=== PATIENT | female | born 1965 | race Caucasian/White ===

== ENCOUNTER 2017-10-17 14:11 | Inpatient (IN) | payer BC ==
[2017-10-17] MEDS ORDERED: Vancomycin(*) 750 MG in NS 0.9% 250 ML* 250 ML IVPB ONE (15:30)
[2017-10-17 15:46] LABS: Hematocrit 39 % (35-47); Hemoglobin 12.9 g/dl (12.0-16.0); Mean Corpuscular HGB Conc 34 g/dl (31-36); Mean Corpuscular Hemoglobin 31 pg (27-31); Mean Corpuscular Volume 91 fL (80-97); Mean Platelet Volume 8 um3 (7.4-10.4); Red Blood Count 4.23 10^6/ul (4.0-5.4); Red Cell Distribution Width 13 % (10.5-15)
[2017-10-17 15:49] LABS: Add Diff/Slide Review? Slide Review Added; Comments Flag Yes
[2017-10-17] MEDS ORDERED: Clindamycin 600 MG IVPREMIX(* 600 MG/50 ML SDV IV ONE (15:55)
[2017-10-17] MEDS ORDERED: Morphine INJ* 2 MG/ML 1 ML CARPUJECT IV ONE ×2 (15:56→17:07)
[2017-10-17] MEDS ORDERED: Morphine INJ* 2 MG/ML 1 ML SYRINGE (TWO MG - NEW SYRINGE VERSION) ONE (15:59)
[2017-10-17] MEDS ORDERED: Vancomycin(*) 1,000 MG VIAL IVPB SCH (16:00)
[2017-10-17 16:01] LABS: Albumin 4.4 g/dL (3.2-5.2); BUN/Creatinine Ratio 13.5 (8-20); C Reactive Protein 28.66 mg/L (< 5.00); Calcium 9.3 mg/dL (8.6-10.3); EGFR African American 66.6 (>60); EGFR Non-African American 51.8 (>60); Globulin 2.7 g/dL (2-4); Potassium 3.6 mmol/L (3.5-5.0); Total Protein 7.1 g/dL (6.4-8.9)
[2017-10-17] MEDS ORDERED: Tetan/Diph/Pertus SYR(Tdap)* 0.5 ML SYR(BOOSTRIX) use SYR IM ONE (16:07)
[2017-10-17] MEDS ORDERED: NS 0.9% 1000 ML*IV.FLUID IV ONE (16:08)
[2017-10-17] MEDS ORDERED: Ondansetron INJ* 2 MG/ML VIAL IV ONE (16:08)
[2017-10-17] MEDS ORDERED: Acetaminophen TAB* 325 MG PO PRN (16:27)
--- NOTE | 2017-10-17 16:36 | RAD ---
HISTORY: Fall, septic knee COMPARISONS: None VIEWS: 1: frontal portable view of the chest at 4 6:00 PM FINDINGS: LINES AND TUBES: None. CARDIOMEDIASTINAL SILHOUETTE: The cardiomediastinal silhouette is normal for portable technique. PLEURA: The costophrenic angles are sharp. No pleural abnormalities are noted. LUNG PARENCHYMA: The lungs are clear. ABDOMEN: The upper abdomen is clear. There is no subphrenic gas. BONES AND SOFT TISSUES: The patient is status post internal fixation of the left clavicle. There is remote posttraumatic deformity to the left hemithorax. IMPRESSION: NO ACTIVE CARDIOPULMONARY DISEASE.
--- NOTE | 2017-10-17 16:38 | RAD ---
HISTORY: Right knee pain, infected knee, COMPARISONS: None TECHNIQUE: Multiple contiguous axial CT images are obtained of the right knee, with coronal and sagittal multiplanar reconstructions, without intravenous contrast administration. FINDINGS: BONE DENSITY: Normal. BONES: There is no displaced fracture. There is no appreciable erosion or periosteal reaction. JOINTS: There is no arthropathy. There is no suprapatellar joint effusion or lipohemarthrosis. MUSCULATURE: Unremarkable ALIGNMENT: There is no dislocation. SOFT TISSUES: There is stranding of the subcutaneous fat along the right infrapatellar and pretibial soft tissue, superficial to the patellar ligament. There is minimal subcutaneous emphysema. There is no loculated fluid collection. OTHER FINDINGS: None. IMPRESSION: INFLAMMATORY CHANGE OF THE INFRAPATELLAR AND PRETIBIAL subcutaneous SOFT TISSUE, WITH MINIMAL SUBCUTANEOUS EMPHYSEMA. THERE IS NO LOCULATED FLUID COLLECTION.
[2017-10-17] MEDS ORDERED: Lidocaine 1% INJ* 10 MG/ML 30 ML SDV ONE (16:59)
[2017-10-17] MEDS ORDERED: Morphine INJ* 4 MG/ML 1 ML CARPUJECT ONE (17:03)
[2017-10-17] MEDS ORDERED: Lidocaine 1%* 5 ML VIAL INJ ONE (17:08)
[2017-10-17 17:17] LABS: Erythrocyte Sed Rate 15 mm/Hr (0-30)
[2017-10-17] MEDS ORDERED: Morphine INJ* 2 MG/ML 1 ML SYRINGE (TWO MG - NEW SYRINGE VERSION) IV PRN (17:45)
[2017-10-17] MEDS ORDERED: oxyCODONE/Acetamin 5/325 MG* TAB PO PRN (17:46)
[2017-10-17] MEDS ORDERED: Estradiol PATCH 0.05MG/DAY* 1 PATCH TRANSDERM SCH (18:00)
[2017-10-17] MEDS: oxyCODONE/Acetamin 5/325 MG* TAB PO PRN (18:17)
[2017-10-17] MEDS: NS 0.9% 1000 ML* 1,000 ML IV SCH (18:25)
[2017-10-17] MEDS: Ibuprofen TAB* 600 MG PO SCH ×2 (19:37→23:03)
[2017-10-17] MEDS: Progesterone CAP (NF) 100 MG CAP PO SCH (20:55)
[2017-10-17] MEDS ORDERED: Progesterone MICRONIZED(NF) 200 MG CAP PO SCH (21:00)
--- NOTE | 2017-10-17 21:10 | ED ---
Robbi Todd Tiffany, scribed for Ami Diehl MD on 10/17/17 at 1556 . Lower Extremity - HPI Summary HPI Summary: This patient is a 51 year old F referred to [facility] from orthopedic office accompanied by with chief complaint of R knee pain s/p hitting her R knee yesterday. The patient was running through the [place] in the [place] morning at 07:00. She slipped and fell on her R knee, hitting her R knee on some rocks. Patient reports that she may have twisted her R knee. Patient received sutures on her R knee at 09:00 yesterday morning. Patient was sent from orthopedics to ED for wound to be re-opened and irrigated and for CT evaluation to eval for air in the joint. The patient rates the pain 7/10 in severity. Symptoms aggravated by nothing. Symptoms alleviated by nothing. She reports increased pain since yesterday, redness, swelling with red streaking. Patient reports nausea. Patient denies chest pain, shortness of breath, and vomiting. She currently has knee in maddy wrap. She had a fever of 104 last night. Patient evaluated with Dr. Zhang in the room. 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 Ponce Mechanism Of Injury: Other - Running through [place] and slipping on snow and falling on R knee Onset of Pain: Post Accident Onset/Duration: Days - 1 Severity Initially: Moderate Severity Currently: Moderate Pain Intensity: 7 Pain Scale Used: 0-10 Numeric Timing: Constant Location: Is Discrete @ - R knee Character Of Pain: Sharp Associated Signs And Symptoms: Positive: Swelling, Redness, Fever, Other - increased pain since yesterday, redness, swelling with red streaking on R knee, fever, and nausea; NEGATIVE: chest pain, shortness of breath, and vomiting Aggravating Factor(s): Nothing Alleviating Factor(s): Nothing Able to Bear Weight: Yes - Allergies/Home Medications Allergies/Adverse Reactions: Allergies Allergy/AdvReac Type Severity Reaction Status Date / Time CATS Allergy ASTHMA Uncoded 04/14/15 10:45 ENVIRONMENTAL/SEASONAL Allergy ITCHY Uncoded 04/14/15 10:45 WATERY EYE Home Medications: Home Medications Estradiol [Climara] 0.05 mg TOPICAL Q3D 10/17/17 [History Confirmed 10/17/17] Ibuprofen TAB* [Motrin TAB* 600 MG] 600 mg PO Q6H PRN 10/17/17 [History Confirmed 10/17/17] Loratadine [Claritin 10 MG CAP] 10 mg PO DAILY PRN 10/17/17 [History Confirmed 10/17/17] Multiple Vitamins W/ Minerals [Multivitamin Adults] 1 tab PO DAILY 10/17/17 [ History Confirmed 10/17/17] Progesterone Micronized [Progesterone] 100 mg PO BEDTIME 10/17/17 [History Confirmed 10/17/17] PMH/Surg Hx/FS Hx/Imm Hx Previously Healthy: No Cardiovascular History: Denies: Hx Pacemaker/ICD Respiratory History: Reports: Hx Asthma - ALLERGY TO CATS Musculoskeletal History: Denies: Hx Rheumatoid Arthritis, Hx Osteoporosis, Other Musculoskeletal History - ULNAR COLLATERAL LIGAMENT TEAR RIGHT THUMB Sensory History: Reports: Hx Contacts or Glasses - CONTACT, WILL WEAR GLASSES DAY OF SURGERY Denies: Hx Hearing Aid Opthamlomology History: Reports: Hx Contacts or Glasses - CONTACT, WILL WEAR GLASSES DAY OF SURGERY Neurological History: Reports: Hx Headaches - OCCASIONAL Psychiatric History: Denies: Hx Panic Disorder - Surgical History Surgery Procedure, Year, and Place: NASAL FX REPAIR. 3 - C SECTION, [facility]. SESAMOID BONE REMOVED LEFT FOOT, [place] 1990. Lt THUMB -UCL REPAIR AGE 20. 1991 Lt ELBOW - RECON SURG, [place]. 2013 RIGHT ULC REPAIR, [facility] Hx Anesthesia Reactions: Yes - 2013 CONFUSED FOR A WEEK AFTER Infectious Disease History: No Infectious Disease History: Denies: Traveled Outside the [place] in Last 30 Days - Family History Known Family History: Positive: Cardiac Disease - Social History Occupation: Employed Full-time Alcohol Use: Weekly Alcohol Amount: 3-5 DRINKS PER WEEK Hx Substance Use: No Substance Use Type: Reports: None Hx Tobacco Use: No Smoking Status (MU): Never Smoked Tobacco Review of Systems Positive: Fever - Last night, 104 Negative: Chest Pain Negative: Shortness Of Breath Positive: Nausea - increased R knee pain since yesterday. Negative: Vomiting Positive: Other - R knee Positive: Other - Redness and swelling with red streaking on R knee Neurological: Negative Psychological: Normal All Other Systems Reviewed And Are Negative: Yes Physical Exam Triage Information Reviewed: Yes Vital Signs On Initial Exam: Initial Vitals Temp Pulse Resp BP Pulse Ox 99.4 F 60 17 94/54 99 10/17/17 14:15 10/17/17 14:15 10/17/17 14:15 10/17/17 14:15 10/17/17 14:15 Vital Signs Reviewed: Yes Appearance: Positive: Well-Appearing, Well-Nourished, Pain Distress Skin: Positive: Warm, Skin Color Reflects Adequate Perfusion, Tender, Erythema @ - right knee, Lymphangitis - right knee to right thigh, Other - R knee had 5 sutures that were intact and dry, there was surrounding redness that was 5cm with two lymphangitic streaks coming up the anterior thigh; NEGATIVE: calf tenderness Head/Face: Positive: Normal Head/Face Inspection Eyes: Positive: Conjunctiva Clear ENT: Positive: Normal ENT inspection Neck: Positive: Supple Respiratory/Lung Sounds: Positive: Clear to Auscultation, Breath Sounds Present - Normal, Other - No respiratory distress Cardiovascular: Positive: Normal, RRR, Pulses are Symmetrical in both Upper and Lower Extremities. Negative: Murmur, Leg Edema Left, Leg Edema Right Abdomen Description: Positive: Nontender, Soft Musculoskeletal: Positive: Strength/ROM Intact, Other - good flexion and extension of R knee Neurological: Positive: Sensory/Motor Intact, Alert, Oriented to Person Place, Time, Facial Symmetry, Speech Normal Psychiatric: Positive: Normal Diagnostics - Vital Signs Vital Signs Temp Pulse Resp BP Pulse Ox 10/17/17 15:41 98 10/17/17 14:15 99.4 F 60 17 94/54 99 - Laboratory Lab Results: Lab Results 10/17/17 Range/Units 15:35 WBC 13.0 H (3.5-10.8) 10^3/ul RBC 4.23 (4.0-5.4) 10^6/ul Hgb 12.9 (12.0-16.0) g/dl Hct 39 (35-47) % MCV 91 (80-97) fL MCH 31 (27-31) pg MCHC 34 (31-36) g/dl RDW 13 (10.5-15) % Plt Count 198 (150-450) 10^3/ul MPV 8 (7.4-10.4) um3 Neut % (Auto) 92.4 H (38-83) % Lymph % (Auto) 3.2 L (25-47) % [place] % (Auto) 4.2 (1-9) % Eos % (Auto) 0.1 (0-6) % Baso % (Auto) 0.1 (0-2) % Absolute Neuts (auto) 12.0 H (1.5-7.7) 10^3/ul Absolute Lymphs (auto) 0.4 L (1.0-4.8) 10^3/ul Absolute Monos (auto) 0.5 (0-0.8) 10^3/ul Absolute Eos (auto) 0 (0-0.6) 10^3/ul Absolute Basos (auto) 0 (0-0.2) 10^3/ul Absolute Nucleated RBC 0 10^3/ul Nucleated RBC % 0 ESR Pending Result Diagrams: 10/17/17 15:35 10/17/17 15:35 Lab Statement: Any lab studies that have been ordered have been reviewed, and results considered in the medical decision making process. - Radiology CXR Radiology Interpretation Completed By: Radiologist - NO ACTIVE CARDIOPULMONARY DISEASE. ED physician has reviewed this radiology report. - CT Lower Extremity CT Interpretation Completed By: Radiologist - INFLAMMATORY CHANGE OF THE INFRAPATELLAR AND PRETIBIAL subcutaneous SOFT TISSUE, WITH MINIMAL SUBCUTANEOUS EMPHYSEMA. THERE IS NO LOCULATED FLUID COLLECTION. ED physician has reviewed this radiology report. - EKG 15:33 Cardiac Rate: NL EKG Rhythm: Sinus Rhythm - [address] Segment: Non-Specific EKG Interpretation: Normal AV/IV conduction time. Normal QTC. Normal axis. Re-Evaluation - Re-Evaluation First Eval Re-Evaluation Time: 16:00 Change: Unchanged Comment: Patient is informed admisson plan. She has no new complaints. Lower Extremity Course/Dx - Course Course Of Treatment: An EKG reveals normal sinus rhythm, normal AV/IV conduction time, normal QTC and normal axis. CXR reveals, per radiologist, NO ACTIVE CARDIOPULMONARY DISEASE. CT Lower Extremity reveals, per radiologist INFLAMMATORY CHANGE OF THE INFRAPATELLAR AND PRETIBIAL subcutaneous SOFT TISSUE , WITH MINIMAL SUBCUTANEOUS EMPHYSEMA. THERE IS NO LOCULATED FLUID COLLECTION. Test results with no significant abnormalities. In the ED course, the patient was given Tylenol, Clindamycin 600mg IV, Xylocaine by Dr. Ponce to open wound and irrigate, Morphine 2mg IV, Zofran 4mg, and Tdap update. We discussed patient care with Dr. Herrera (orthopedics) who said that will see the patient , take stiches out and irrigate the wound. At 15:57, Dr. Salinas (hospitalist) agreed to accept the patient for admission. At 16:03, radiology said shell be imaged next. Dr. Herrera removed sutures, found pus in wound, and irrigated the wound at the patients bedside at 17:04. Patient will be admitted for IV antibiotics. The patient is agreeable with this plan. Assessment/Plan: Allergies noted. - Diagnoses Differential Diagnosis/HQI/PQRI: Positive: Fracture (Closed), Infection, Septic Arthritis, Other - sepsis Provider Diagnoses: right knee wound infection - Physician Notifications Discussed Care Of Patient With: Deric Herrera Time Discussed With Above Provider: 15:54 Instructed by Provider To: Admit As Observation - Dr. Herrera (orthopedics) said he will see the patient, take stiches out and irrigate the wound. At 15:57 , Dr. Salinas (hospitalist) agreed to accept the patient for admission. Discharge - Discharge Plan Condition: Stable Disposition: ADMITTED TO [facility] The documentation as recorded by the Robbi hadley Tiffany accurately reflects the service I personally performed and the decisions made by , Ami Diehl MD.
[2017-10-17] MEDS: Clindamycin 600 MG IVPREMIX(* 600 MG/50 ML SDV IV SCH (22:04)
--- NOTE | 2017-10-17 22:20 | CONS ---
CONSULTATION REPORT: DATE OF CONSULT: 10/17/17 REQUESTING PHYSICIAN: Dr. Ami Diehl. CONSULTING SERVICE: Infectious Disease. REASON FOR CONSULT: Right knee infection. IMPRESSION: Right knee laceration October 16 after a fall and rapid onset overnight of fever, erythema around the incision and streaking up the leg that has been progressed more during the day. I do not think there is a necrotizing soft tissue infection. Microbiologic differential includes Strep. There is a question about the degree of which the incision was washed out and I am concerned that that process was incomplete. She does have some pain with weightbearing and bending the knee without significant infusion on exam. RECOMMENDATION: Clindamycin 600 mg IV every 8 hours. She is going to have a CT scan as directed by Dr. Herrera to evaluate the joint space. She will need a tetanus shot. I think it will make sense to open up the sutures, which have only been placed for less than 24 hours, make sure it is thoroughly irrigated. HISTORY OF PRESENT ILLNESS: This is a 51-year-old woman otherwise healthy, had a fall while running, landed on knee and found she had a gash over the right knee. She washed it with soap and water and no shower. She is a physician, her as well, they went to their office, he sutured it. It has remained intact, but overnight developed some redness, this morning awoke with a fever to 101 and she had pain with bending the knee and weightbearing and there were red streaks coming up her knee. She saw Dr. Herrera today who directed to the emergency room. She was febrile in his office. Her blood pressure was stable here. She has continued knee pain, some chills and sweats. The redness has not progressed since the morning. She can still bend the knee, but it is painful as well as with weightbearing. She has not had an infection requiring hospitalization in the past. PAST MEDICAL HISTORY: Left clavicle fracture, status post open reduction and internal fixation. MEDICATIONS AT HOME: 1. Oxycodone as needed. 2. Progesterone. 3. Loratadine. ALLERGIES: No known drug allergies. FAMILY HISTORY: No recurrent infections. 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 No travel. REVIEW OF SYSTEMS: A 14-point review of systems was negative except as noted above. PHYSICAL EXAM: Vital Signs: Temperature is 37, heart rate 65, blood pressure 124/83, oxygen saturation is 98% on room air. In general, she is awake, not in distress. Neurologic: She is oriented x3, follows all commands. HEENT: There is no conjunctival hemorrhage. Oropharynx without lesions. Neck is supple. Heart is regular rate and rhythm without murmurs, rubs, or gallops. Lungs are clear to auscultation bilaterally. Abdomen: Soft, nontender, nondistended. There are bowel sounds present. Skin: There is no rash or splinter hemorrhages. Musculoskeletal: Right knee, there is anterior laceration which is sutured. There is surrounding erythema with some streaks up her leg with some mild warmth. There is diffuse edema. There is no large effusion at least. She has decreased flexion. There is no crepitus or fluctuance. DIAGNOSTIC STUDIES/LAB DATA: Lab data is pending. Please see impressions and recommendations outlined above, which I have discussed with Dr. Diehl and Dr. Herrera. Thank you for asking me to see Dr. Figueredo in consultation. [id number]/[facility] #: [id number] [facility]
--- NOTE | 2017-10-17 23:27 | HP ---
CC: Dr. China Watts * HISTORY AND PHYSICAL: DATE OF ADMISSION: 10/17/17 PRIMARY CARE PROVIDER: Dr. China Watts. ATTENDING PHYSICIAN: Dr. Chance Salinas * (dictated by Sheila Person NP). CHIEF COMPLAINT: Right knee pain and swelling after falling and sustaining a laceration. HISTORY OF PRESENT ILLNESS: Ms. Figueredo is a 51-year-old female with past medical history significant for perimenopausal migraines and asthma when exposed to cats, who initially presented to Dr. Herrera with Orthopedic's office to evaluate her knee that was red and painful after she fell while running in the snow on to a rock, sustaining right knee laceration. She washed the injury out with water in the shower and then her who is a physician sutured the injury. She feels that she may have twisted her knee. She reports increased pain, redness, swelling, and some red streaking in her knee, also difficulty bearing weight due to pain. She denies any fevers, although while at Dr. Herrera's office, she was found to have a temperature of 101. She states she had taken Tylenol this a.m. and ibuprofen yesterday. The patient reports dry cough and denies chest pain, shortness of breath. She also reports some nausea. She has had a recent cold and she denies any urinary symptoms. Dr. Herrera referred the patient to the emergency room for further evaluation. While in the emergency room, she had labs significant for a leukocytosis with a WBC of 13. She had an elevated creatinine of 1.11, but that appeared to be near her baseline. She had an EKG showing a sinus rhythm, no acute signs of ischemia. CRP elevated at 28.66. She was seen by Dr. Zhang, who recommended admitting the patient and placing her on clindamycin 600 mg IV every [address] Herrera recommended the patient have a CT of her knee if she had air in the knee. The plan was to take her to the OR and do a wound exploration. He felt that she just needed a washout in the ER and resuturing of the laceration after the CT scan was seen. Hospitalists were asked to evaluate the patient for admission. PAST MEDICAL HISTORY: 1. Perimenopausal migraines. 2. Asthma when exposed to cats. PAST SURGICAL HISTORY: 1. Status post a left clavicle ORIF. 2. Status post 3 sections. 3. Status post nasal fracture repair. 4. Status post a left sesamoid bone removal. 5. Status post arm laceration repair. 6. Status post wisdom teeth extraction. 7. Status post a left thumb UCL repair. 8. Status post left elbow reconstruction. 9. Status post right UCL repair. HOME MEDICATIONS: Include: 1. Progesterone 100 mg oral daily at bedtime. 2. Estradiol 0.5 mcg patch applies twice weekly. 3. Multivitamin 1 tablet oral daily. 4. Motrin 600 mg oral every 6 hours as needed for pain. 5. Acetaminophen 500 mg oral as needed for pain. 6. Claritin 10 mg oral as needed for allergy symptoms. ALLERGIES: CAT, SEASONAL. FAMILY HISTORY: The patient's father has a history of hypertension, hyperlipidemia, bladder cancer. She denies any family history of diabetes mellitus. SOCIAL HISTORY: The patient denies tobacco or recreational drug use. She drinks 3 to 4 drinks weekly. Her , Dr. Babatunde Roldan will be her surrogate decision maker in the event she is unable to make decisions for herself. REVIEW OF SYSTEMS: I performed a 14-point review of systems. All the pertinent positives and negatives are mentioned in the history of present illness. The remaining review of systems are negative. PHYSICAL EXAMINATION GENERAL APPEARANCE: The patient is alert, pleasant, appears to be in no acute distress. VITAL SIGNS: Temperature 99.4, heart rate 60, respiratory rate 17, O2 sat 99% on room air, blood pressure 94/54. HEENT: Head: Normocephalic, atraumatic. RESPIRATORY: There is no accessory muscle use. The lungs are clear to auscultation bilaterally. CARDIOVASCULAR: Regular rate and rhythm. S1, S2 present. There are no murmurs , rubs, or gallops heard. ABDOMEN: Soft, nontender, and nondistended. There are bowel sounds present x4. EXTREMITIES: There is mild swelling at the right knee. No lower extremity edema. DP and PT pulses are 2+ and symmetric. MUSCULOSKELETAL: There is no clubbing or cyanosis noted. The patient exhibits good strength in all extremities. NEUROLOGICAL: The patient is alert and oriented x4. Cranial nerves II through XII are grossly intact. PSYCHOLOGICAL: The patient is calm and cooperative. SKIN: The patient has a dressing to her right knee that is clean, dry, and intact. She has erythema with some streaking noted from her knee on the right leg. DIAGNOSTIC STUDIES/LABORATORY DATA: Sodium 132, potassium 3.6, chloride 101, CO2 25, BUN 15, creatinine 1.11, glucose 123. CRP 28.66. WBCs 13.0, hemoglobin 12.9, hematocrit 39, platelet count 198. EKG shows a sinus rhythm with a rate of 65. There are no acute signs of ischemia and no previous EKGs for comparison. 1. Chest x-ray from today. Radiologist's impression: No active cardiopulmonary disease. 2. Right lower extremity CT from today. Radiologist's impression: Inflammatory change of the infrapatellar and pretibial subcutaneous soft tissue , with minimal subcutaneous emphysema. There is no loculated fluid collection. 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 She will be admitted as an inpatient for cellulitis. ASSESSMENT/PLAN: 1. Cellulitis. The patient was seen in consultation by Dr. Zhang and Dr. Herrera. Dr. Herrera is going to wash the patient's knee out in the emergency room and resuture it. Dr. Zhang has recommended the patient be placed on clindamycin 600 mg oral every 6 hours. We provide her with pain medication. She is not meeting signs of sepsis. She is afebrile here. She does have leukocytosis. She does not have tachycardia or tachypnea. Her blood pressures were in the 90s upon arrival. She received some fluids. I suspect this is close to her baseline blood pressures. We will continue some gentle hydration overnight. The patient's CRP is 28.66 and her ESR is 15. 2. Elevated creatinine. The patient's creatinine appears to be near her baseline. We will give her some IV fluids. Recheck in the morning. 3. Perimenopausal. Continue progesterone and estradiol. 4. Fluids, electrolytes, and nutrition. The patient will be on a regular diet. She is a vegetarian. 5. Code status. Full code. 6. DVT prophylaxis. The patient is a low risk, will be encouraged to ambulate. 7. Disposition. Inpatient. TIME SPENT: Time for this admission was approximately 60 minutes, greater than half of that was spent with the patient discussing medications, past medical history and the events leading up to her arrival today, performing a physical examination. The case has been reviewed with the attending, Dr. Salinas, who agrees with the plan of care. Reviewed by OLGA ALBERT 10/22/17 1932 [id number]/[facility] #: [id number] DAVE
[2017-10-17] MEDS ORDERED: NS 0.9% 500 ML* 500 ML IV ONE (23:29)
[2017-10-18] MEDS: NS 0.9% 1000 ML* 1,000 ML IV SCH ×2 (00:23→14:00)
[2017-10-18] MEDS: Clindamycin 600 MG IVPREMIX(* 600 MG/50 ML SDV IV SCH ×3 (03:28→17:49)
[2017-10-18] MEDS: Ibuprofen TAB* 600 MG PO SCH ×3 (06:04→17:48)
[2017-10-18 06:36] LABS: Hematocrit 32 % (35-47); Mean Corpuscular HGB Conc 34 g/dl (31-36); Mean Corpuscular Hemoglobin 31 pg (27-31); Mean Corpuscular Volume 92 fL (80-97); Mean Platelet Volume 8 um3 (7.4-10.4); Red Blood Count 3.51 10^6/ul (4.0-5.4); Red Cell Distribution Width 13 % (10.5-15)
[2017-10-18 06:50] LABS: BUN/Creatinine Ratio 13.8 (8-20); Calcium 8.1 mg/dL (8.6-10.3); EGFR African American 88.3 (>60); EGFR Non-African American 68.6 (>60); Potassium 3.6 mmol/L (3.5-5.0)
--- NOTE | 2017-10-18 10:33 | PN ---
Progress Note - Progress Note Date of Service: 10/18/17 SOAP: Subjective: she reports feeling better overall but thinks erythema worse [] Objective: Temp Pulse Resp BP Pulse Ox 97.3 F 58 16 94/65 99 10/18/17 03:37 10/18/17 03:37 10/18/17 03:37 10/18/17 03:37 10/18/17 03:37 erythema increased from yesterday evening no intraarticular knee pain with ROM able to SLR NVI distally [] Imaging: CT yesterday without e/o joint involevment (also no evidence upon my exploration and I&D yesterday) Assessment: Right knee lac with cellulitis [] Plan: abx per ID daily DSD monitor erythema WBAT RLE []
[2017-10-18] MEDS ORDERED: Ciprofloxacin 400MG IVPREMIX(* 400 MG/200 ML BAG IVPB SCH (12:00)
[2017-10-18 12:32] LABS: Urine Bilirubin Negative (Negative); Urine Glucose Negative (Negative); Urine Nitrite Negative (Negative)
--- NOTE | 2017-10-18 14:33 | PN ---
Progress Note - Progress Note Date of Service: 10/18/17 SOAP: Subjective: CC: cellulitis HPI: 51 year old woman with right knee laceration, suboptimally cleaned then sutured, developed fever, malaise, chills, redness around sutures and knee stiffness. Dr. Torres I&D at bedside some purulent material. On clinda overnight, fever resolved. Cipro added today after GS back. Redness fluctuating today. Knee less stiff. Objective: [] Vital Signs Temp 36.6 C 10/18/17 11:43 Pulse 55 10/18/17 11:43 Resp 12 10/18/17 11:43 BP 123/60 10/18/17 11:43 Pulse Ox 100 10/18/17 11:43 Intake & Output 10/17/17 10/18/17 10/18/17 18:59 06:59 18:59 Intake Total 1600 1506 230 Output Total 1700 Balance 1600 -194 230 Weight 119 lb 4.8 oz Intake: IV Fluids 1600 1506 NS (0.9%) 1506 Oral 0 230 Output: Urine 1700 Other: # Bowel Movements 0 Gen:awake, no distress Skin: no rash MSK:R knee incision sutures intact diffuse mild erythema and warmth, some downward spread, no crepitus Laboratory Results - last 24 hr 10/17/17 10/17/17 10/17/17 15:35 15:35 15:35 WBC 13.0 H RBC 4.23 Hgb 12.9 Hct 39 MCV 91 MCH 31 MCHC 34 RDW 13 Plt Count 198 MPV 8 Neut % (Auto) 92.4 H Lymph % (Auto) 3.2 L Howell % (Auto) 4.2 Eos % (Auto) 0.1 Baso % (Auto) 0.1 Absolute Neuts (auto) 12.0 H Absolute Lymphs (auto) 0.4 L Absolute Monos (auto) 0.5 Absolute Eos (auto) 0 Absolute Basos (auto) 0 Absolute Nucleated RBC 0 Nucleated RBC % 0 ESR 15 INR (Anticoag Therapy) 0.95 APTT 27.0 Sodium 132 L Potassium 3.6 Chloride 101 Carbon Dioxide 25 Anion Gap 6 BUN 15 Creatinine 1.11 H Est GFR ( Amer) 66.6 Est GFR (Non-Af Amer) 51.8 BUN/Creatinine Ratio 13.5 Glucose 123 H Lactic Acid Calcium 9.3 Total Bilirubin 1.00 AST 20 ALT 16 Alkaline Phosphatase 41 Total Creatine Kinase 90 Troponin I 0.00 C-Reactive Protein 28.66 H Total Protein 7.1 Albumin 4.4 Globulin 2.7 Albumin/Globulin Ratio 1.6 Urine Color Urine Appearance Urine pH Ur Specific [place] Urine Protein Urine Ketones Urine Blood Urine Nitrate Urine Bilirubin Urine Urobilinogen Ur Leukocyte Esterase Urine Glucose 10/17/17 10/18/17 10/18/17 15:35 06:28 06:28 WBC 8.0 RBC 3.51 L Hgb 11.0 L Hct 32 L MCV 92 MCH 31 MCHC 34 RDW 13 Plt Count 142 L MPV 8 Neut % (Auto) 81.6 Lymph % (Auto) 11.4 L Howell % (Auto) 6.2 Eos % (Auto) 0.3 Baso % (Auto) 0.5 Absolute Neuts (auto) 6.5 Absolute Lymphs (auto) 0.9 L Absolute Monos (auto) 0.5 Absolute Eos (auto) 0 Absolute Basos (auto) 0 Absolute Nucleated RBC 0 Nucleated RBC % 0 ESR INR (Anticoag Therapy) APTT Sodium 134 Potassium 3.6 Chloride 109 Carbon Dioxide 22 Anion Gap 3 BUN 12 Creatinine 0.87 Est GFR ( Amer) 88.3 Est GFR (Non-Af Amer) 68.6 BUN/Creatinine Ratio 13.8 Glucose 91 Lactic Acid 1.1 Calcium 8.1 L Total Bilirubin AST ALT Alkaline Phosphatase Total Creatine Kinase Troponin I C-Reactive Protein Total Protein Albumin Globulin Albumin/Globulin Ratio Urine Color Urine Appearance Urine pH Ur Specific [place] Urine Protein Urine Ketones Urine Blood Urine Nitrate Urine Bilirubin Urine Urobilinogen Ur Leukocyte Esterase Urine Glucose 10/18/17 12:15 WBC RBC Hgb Hct MCV MCH MCHC RDW Plt Count MPV Neut % (Auto) Lymph % (Auto) Howell % (Auto) Eos % (Auto) Baso % (Auto) Absolute Neuts (auto) Absolute Lymphs (auto) Absolute Monos (auto) Absolute Eos (auto) Absolute Basos (auto) Absolute Nucleated RBC Nucleated RBC % ESR INR (Anticoag Therapy) APTT Sodium Potassium Chloride Carbon Dioxide Anion Gap BUN Creatinine Est GFR ( Amer) Est GFR (Non-Af Amer) BUN/Creatinine Ratio Glucose Lactic Acid Calcium Total Bilirubin AST ALT Alkaline Phosphatase Total Creatine Kinase Troponin I C-Reactive Protein Total Protein Albumin Globulin Albumin/Globulin Ratio Urine Color Straw Urine Appearance Clear Urine pH 6.0 Ur Specific [place] 1.003 L Urine Protein Negative Urine Ketones Negative Urine Blood Negative Urine Nitrate Negative Urine Bilirubin Negative Urine Urobilinogen Negative Ur Leukocyte Esterase Negative Urine Glucose Negative Microbiology 10/17/17 17:45 Skin and Soft Tissue MRSA/MSSA (PCR - Final Knee Mrsa Negative S.aureus Negative Gram Stain - Final Assessment: 1. R knee cellulitis and abscess at laceration, per micro a GNAR is growing 2. Td up to date Plan: 1. DC cipro, start zosyn in event GNAR and continue clindamycin Discussed with Dr Banegas
[2017-10-18] MEDS ORDERED: Piperacillin/Tazobac ADVAN(*) 3.375 GM in NS 0.9% 100 ML* 100 ML IVPB ONE (14:41)
[2017-10-18] MEDS ORDERED: Zosyn per Pharmacy* NOTE FOLLOW UP SCH (15:00)
--- NOTE | 2017-10-18 18:17 | PN ---
Subjective Date of Service: 10/18/17 Interval History: - Patient fell on R knee recently - suffered laceration. laceration incompletely irrigated and sutured. - Quickly developed fever, malaise, chills, redness around sutures and knee pain /stiffness. - Dr. Torres I&D at bedside some purulent material. - CT knee does not show joint involvement; no air. - BCX NGTD; wound culture polymicrobial including, recently, GNAR. - Clinda started initially - Cipro added for GN rods - Cipro changed to Zosyn to cover, specifically, anaerobic organisms. - Patient's knee is marked and erythema is being tracked carefully - She is healthy at baseline and feels well overall. Family History: Unchanged from Admission Social History: Unchanged from Admission Past Medical History: Unchanged from Admission Objective Active Medications: . Acetaminophen (Tylenol Tab*) 650 mg PO Q4H PRN PRN Reason: FEVER/PAIN Estradiol (Climara Patch 0.05 Mg/Day*) 1 patch TRANSDERM Q14D [facility] Last Admin: 10/17/17 19:38 Dose: Not Given Sodium Chloride (Ns 0.9% 1000 Ml*) 1,000 mls @ 100 mls/hr IV PER RATE [facility] Last Admin: 10/18/17 14:00 Dose: 100 mls/hr Clindamycin HCl/Dextrose (Cleocin 600 Mg Ivpremix(*) Sdv) 600 mg in 50 mls @ 100 mls/hr IV Q8H [facility] Last Admin: 10/18/17 17:49 Dose: 100 mls/hr Piperacillin Sod/Tazobactam (Sod 3.375 gm/ Sodium Chloride) 100 mls @ 25 mls/ hr IVPB Q8H [facility] Ibuprofen (Motrin Tab*) 600 mg PO Q6H [facility] Last Admin: 10/18/17 17:48 Dose: 600 mg Morphine Sulfate (Morphine Inj (Syringe)*) 2 mg IV Q2H PRN PRN Reason: PAIN - SEVERE Oxycodone/Acetaminophen (Percocet 5/325 Tab*) 1 tab PO Q4H PRN PRN Reason: PAIN Last Admin: 10/17/17 18:17 Dose: 1 tab Oxycodone/Acetaminophen (Percocet 5/325 Tab*) 2 tab PO Q4H PRN PRN Reason: PAIN - MODERATE TO SEVERE Pharmacy Consult (Zosyn Per Pharmacy*) 1 note FOLLOW UP .ZOSYN PER PHARMACY [facility] Progesterone (Prometrium (Nf)) 100 mg PO BEDTIME [facility] PRN Reason: Protocol Last Admin: 10/17/17 20:55 Dose: Not Given . Vital Signs - 8 hr 10/18/17 10/18/17 10:23 11:43 Temperature 98.2 F 97.9 F Pulse Rate 59 55 Respiratory 12 12 Rate Blood Pressure 102/62 123/60 (mmHg) O2 Sat by Pulse 99 100 Oximetry Oxygen Devices in Use Now: None Appearance: NAD; sitting up in bed Eyes: No Scleral Icterus Ears/Nose/Mouth/Throat: Clear Oropharnyx Neck: NL Appearance and Movements; NL JVP Respiratory: Symmetrical Chest Expansion and Respiratory Effort Cardiovascular: No Edema Extremities: No Edema Skin: - - R knee with suprapatellar laceration - sutured - surrounding (marked) erythema with some proximal spread. Neurological: Alert and Oriented x 3 Lines/Tubes/Other Access: Clean, Dry and Intact Peripheral IV Nutrition: Taking PO's Result Diagrams: 10/18/17 06:28 10/18/17 06:28 Additional Lab and Data: . Microbiology and Other Data: Microbiology 10/17/17 17:45 Skin and Soft Tissue MRSA/MSSA (PCR - Final Knee Mrsa Negative S.aureus Negative Gram Stain - Final Wound Culture - Preliminary Clostridium Perfringens Assess/Plan/Problems-Billing . Assessment: 51 yo female with laceration of knee and incomplete washout that progressed with development of fever, malaise, chills, redness around sutures, knee pain & stiffness. Dr. Torres (ortho) I & D'd at bedside. Micro from Wound: polymicrobial with GPR, GNAR, GNR, GPC (not MRSA). BCX NGTD - Patient Problems (1) Laceration of right knee with complication Current Visit: Yes Status: Acute Priority: High Code(s): S81.011A - LACERATION WITHOUT FOREIGN BODY, RIGHT KNEE, INIT ENCNTR Comment: - Zosyn/Clinda for GP/GN (anaerobic) coverage. - Analgesics for knee pain - wound care / skin care ; wet to dry dressings. - cellulitis marked (2) Cellulitis of right knee Current Visit: Yes Status: Acute Priority: High Code(s): L03.115 - CELLULITIS OF RIGHT LOWER LIMB Comment: - As above
[2017-10-18] MEDS: Piperacillin/Tazobac ADVAN(*) 3.375 GM in NS 0.9% 100 ML* 100 ML IVPB SCH (19:54)
[2017-10-18] MEDS: oxyCODONE/Acetamin 5/325 MG* TAB PO PRN (20:00)
[2017-10-18] MEDS: Progesterone CAP (NF) 100 MG CAP PO SCH (21:23)
[2017-10-19] MEDS: Ibuprofen TAB* 600 MG PO SCH ×4 (00:11→21:38)
[2017-10-19] MEDS: Clindamycin 600 MG IVPREMIX(* 600 MG/50 ML SDV IV SCH ×3 (01:30→18:13)
[2017-10-19] MEDS: Piperacillin/Tazobac ADVAN(*) 3.375 GM in NS 0.9% 100 ML* 100 ML IVPB SCH ×3 (04:19→20:34)
--- NOTE | 2017-10-19 10:33 | PN ---
Progress Note - Progress Note Date of Service: 10/19/17 SOAP: Subjective: Overall feeling better. Tenseness of right knee improving [] Objective: Temp Pulse Resp BP Pulse Ox 97.9 F 61 18 114/65 99 10/19/17 03:31 10/19/17 07:44 10/19/17 07:44 10/19/17 07:44 10/19/17 07:44 R knee: Improved erythema distally and at knee. It has spread a little proximally. Tense edema much improved about knee from yesterday Lac site without drainage or fluctuance NVI distally Painless knee ROM [] Assessment: Improved right knee cellulitis. i am happy with the appearance this morning. The tense erythema/swelling has greatly improved. Wound looks good. [] Plan: abx per ID We discussed wound care today - nonadherent DSD I will see her ~ 2weeks for suture removal []
[2017-10-19] MEDS: oxyCODONE/Acetamin 5/325 MG* TAB PO PRN (15:32)
--- NOTE | 2017-10-19 16:57 | PN ---
Subjective Date of Service: 10/19/17 Interval History: saw patient discussed case with Carmelo Zhang --> agree to one more day of IV Abx then transition to oral Abx. Clinda/Augmentin. Denies new c/o leg looks much better laceration without purulent drainage knee is passively moved without difficulty. some mild supra-patellar swelling, but not worsening. overall--> she is improving. Family History: Unchanged from Admission Social History: Unchanged from Admission Past Medical History: Unchanged from Admission Objective Active Medications: . Acetaminophen (Tylenol Tab*) 650 mg PO Q4H PRN PRN Reason: FEVER/PAIN Estradiol (Climara Patch 0.05 Mg/Day*) 1 patch TRANSDERM Q14D [facility] Last Admin: 10/17/17 19:38 Dose: Not Given Clindamycin HCl/Dextrose (Cleocin 600 Mg Ivpremix(*) Sdv) 600 mg in 50 mls @ 100 mls/hr IV Q8H [facility] Last Admin: 10/19/17 10:00 Dose: 100 mls/hr Piperacillin Sod/Tazobactam (Sod 3.375 gm/ Sodium Chloride) 100 mls @ 25 mls/ hr IVPB Q8H [facility] Last Admin: 10/19/17 12:50 Dose: 25 mls/hr Ibuprofen (Motrin Tab*) 600 mg PO Q6H [facility] Last Admin: 10/19/17 15:35 Dose: 600 mg Morphine Sulfate (Morphine Inj (Syringe)*) 2 mg IV Q2H PRN PRN Reason: PAIN - SEVERE Oxycodone/Acetaminophen (Percocet 5/325 Tab*) 1 tab PO Q4H PRN PRN Reason: PAIN Last Admin: 10/19/17 15:32 Dose: 1 tab Oxycodone/Acetaminophen (Percocet 5/325 Tab*) 2 tab PO Q4H PRN PRN Reason: PAIN - MODERATE TO SEVERE Pharmacy Consult (Zosyn Per Pharmacy*) 1 note FOLLOW UP .ZOSYN PER PHARMACY [facility] Progesterone (Prometrium (Nf)) 100 mg PO BEDTIME [facility] PRN Reason: Protocol Last Admin: 10/18/17 21:23 Dose: Not Given . Vital Signs - 8 hr 10/19/17 10/19/17 10/19/17 10:11 15:28 15:32 Temperature 98.0 F 98.4 F Pulse Rate 42 Respiratory 16 14 Rate Blood Pressure 102/66 (mmHg) O2 Sat by Pulse 100 Oximetry Oxygen Devices in Use Now: None Appearance: NAD Eyes: No Scleral Icterus Ears/Nose/Mouth/Throat: Clear Oropharnyx Neck: NL Appearance and Movements; NL JVP Respiratory: Symmetrical Chest Expansion and Respiratory Effort Cardiovascular: NL Sounds; No Murmurs; No JVD Lymphatic: No Cervical Adenopathy Extremities: No Edema, - - incision over R patella improving. cellulitis receding--> marked and no extension beyond the outline Skin: No Rash or Ulcers Neurological: Alert and Oriented x 3 Lines/Tubes/Other Access: Clean, Dry and Intact Peripheral IV Result Diagrams: 10/18/17 06:28 10/18/17 06:28 Additional Lab and Data: . Microbiology and Other Data: Microbiology 10/17/17 17:45 Skin and Soft Tissue MRSA/MSSA (PCR - Final Knee Mrsa Negative S.aureus Negative Gram Stain - Final Wound Culture - Preliminary Clostridium Perfringens Assess/Plan/Problems-Billing . Assessment: 51 yo female with laceration of knee and incomplete washout that progressed with development of fever, malaise, chills, redness around sutures, knee pain & stiffness. Dr. Torres (ortho) I & D'd at bedside. Micro from Wound: polymicrobial with GPR, GNAR, GNR, GPC (not MRSA). BCX NGTD - Patient Problems (1) Laceration of right knee with complication Current Visit: Yes Status: Acute Priority: High Code(s): S81.011A - LACERATION WITHOUT FOREIGN BODY, RIGHT KNEE, INIT ENCNTR Comment: - Zosyn/Clinda for GP/GN (anaerobic) coverage. - Analgesics for knee pain - wound care / skin care ; nonadherent dry dressings. - cellulitis marked (2) Cellulitis of right knee Current Visit: Yes Status: Acute Priority: High Code(s): L03.115 - CELLULITIS OF RIGHT LOWER LIMB Comment: - As above
[2017-10-19] MEDS: Progesterone CAP (NF) 100 MG CAP PO SCH (21:41)
[2017-10-20] MEDS: Clindamycin 600 MG IVPREMIX(* 600 MG/50 ML SDV IV SCH ×2 (02:06→09:36)
[2017-10-20] MEDS: Piperacillin/Tazobac ADVAN(*) 3.375 GM in NS 0.9% 100 ML* 100 ML IVPB SCH (04:32)
[2017-10-20] MEDS: Ibuprofen TAB* 600 MG PO SCH ×2 (04:37→07:42)
[2017-10-20] MEDS ORDERED: Clindamycin CAP* 150 MG PO ONE (08:24)
[2017-10-20 08:46] VITALS: BP 115/71
--- NOTE | 2017-10-20 10:57 | PN ---
Progress Note - Progress Note Date of Service: 10/20/17 SOAP: Subjective: CC: cellulitis HPI: 51 year old woman with right knee laceration which developed cellulitis and knee stiffness. Dr. Torres I&D at bedside some purulent material. Fever resolved. Redness nearly gone. Minimal pain with weight bearing, some stiffness in knee. No rash or diarrhea. Objective: [] Vital Signs Temp 36.4 C 10/20/17 07:15 Pulse 42 10/20/17 07:15 Resp 16 10/20/17 07:57 BP 115/71 10/20/17 07:15 Pulse Ox 100 10/20/17 07:57 Intake & Output 10/19/17 10/20/17 10/20/17 18:59 06:59 18:59 Intake Total 660 100 Balance 660 100 Intake: IV Fluids 100 zosyn 100 IVPB 100 zosyn 100 Oral 560 0 Other: Estimated Void Medium Medium # Bowel Movements 0 # Voids 4 2 Gen:awake, no distress Neck:supple Skin: no rash MSK:R knee incision sutures intact , no erythema or warmth, trace diffuse edema Microbiology 10/17/17 17:45 Knee Skin and Soft Tissue MRSA/MSSA (PCR - Final Mrsa Negative S.aureus Negative 10/17/17 17:45 Knee Gram Stain - Final 10/17/17 17:45 Knee Wound Culture - Final Clostridium Perfringens Normal Yuridia 10/17/17 06:28 Blood Venous Aerobic Blood Culture - Preliminary No Growth Day 2 10/17/17 06:28 Blood Venous Anaerobic Blood Culture - Preliminary No Growth Day 2 10/17/17 15:35 Blood Venous Aerobic Blood Culture - Preliminary No Growth Day 2 10/17/17 15:35 Blood Venous Anaerobic Blood Culture - Preliminary No Growth Day 2 Assessment: 1. R knee cellulitis and abscess after contaminated laceration, due to Clostridium perfringens 2. Td given here Plan: 1.clindamycin 300 mg po tid and augmentin 500 mg po bid for 7 more days; NSAIDs as needed, return if worsening redness, pain or swelling 25 minutes floor time >50% face to face discussing follow up plans
--- NOTE | 2017-10-22 11:53 | DS ---
CC: Dr. China Watts DATE OF ADMISSION: 10/17/2017. DATE OF DISCHARGE: 10/20/2017. PRIMARY CARE PHYSICIAN: Dr. China Watts, [facility]. PRINCIPAL DISCHARGE DIAGNOSIS: Right knee laceration and polymicrobial infection with identified clostridium perfringens species treated with ongoing antibiotics and status post wound washout by Orthopedic Surgery and resuturing with ongoing wound care instructed to patient. SECONDARY DIAGNOSES: 1. Perimenopausal migraines. 2. ALLERGIES TO CATS/associated asthma. DISCHARGE MEDICATION REGIMEN: 1. Clindamycin 300 mg by mouth three times daily for 7 days then stop. 2. Augmentin 500 mg by mouth twice daily times 7 days then stop. Continue all other medications includin. Progesterone. 2. Estrodial. 3. Multivitamin. 4. Motrin prn. 5. Acetaminophen prn. 6. Claritin prn. HISTORY OF PRESENT ILLNESS AND HOSPITAL COURSE: Please see the history and physical by nurse practitioner Sheila Natarajan under the supervision of Dr. Bill Salinas, as well as the Orthopedic Surgery consultation and procedure notes by Dr. Deric Herrera, as well as the Infectious Disease consultation by Dr. Catarino Zhang. 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 Herrera with a right knee injury (laceration) sustained while running in the snow. She slipped and fell onto a rock and sustained a right knee laceration. The wound was incompletely washed out and sutured. The patient experienced some local swelling and red streaking and some systemic symptoms including low grade temperature and malaise. She came to the emergency room had a leukocytosis of 13, her creatinine was modestly elevated at 1.11, a bit above her baseline. She had an elevated CRP. She was started on IV Clindamycin. She had a CT scan of her knee that did not show any joint involvement and only local soft tissue swelling. The knee was washed out again by Orthopedic Surgery. It was resutured and wound care ensued. The patient had wound cultures taken that grew out bacteria of several different morphologies, including, gram positive and gram negatives; MRSA was not identified, but clostridium species (gram negative aerobic rods) were identified. Zosyn was added to broaden the initial gram negative coverage with Ciprofloxacin and the patient was discharged on Clindamycin and Augmentin. 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 Her white count has normalized. She is afebrile. Her local pain and swelling in the knee is receding. The cellulitis in the surrounding area was marked and is clearly improving. She was given careful return to ED instructions. She was offered a direct admission, if admission is needed, by contacting the hospital bin tripper operator and asking for the hospitalist cinder block mason. The patient has excellent access to care as her is also a physician, but she is going to follow-up with Dr. Watts this week and any questions in the interim can be directed back to Dr. Banegas at the hospital. Total time take to discharge Dr. Figueredo was 45 minutes and greater than half that time was spent going over the discharge instructions with the patient and coordinating her care. [id number]/[facility] #: [id number] DAVE
== END 2017-10-20 12:20 | disposition home or self-care (01) | DRG 364 ==
LOC: ED 14:11 → MED 16:19
PROVIDERS: ADMIT Internal Medicine; ATTEND Internal Medicine
PROC: 0JDN0ZZ Extraction of Right Lower Leg Subcutaneous Tissue and Fascia, Open Approach (ICD-10-PCS; principal; 2017-10-17)
DX: S81.011A Laceration without foreign body, right knee, initial encounter (principal); L03.115 Cellulitis of right lower limb; B96.7 Clostridium perfringens [C. perfringens] as the cause of diseases classified elsewhere; W00.0XXA Fall on same level due to ice and snow, initial encounter; G43.809 Other migraine, not intractable, without status migrainosus; J45.909 Unspecified asthma, uncomplicated; Y92.9 Unspecified place or not applicable; Z79.1 Long term (current) use of non-steroidal anti-inflammatories (NSAID); Z79.890 Hormone replacement therapy; Z79.899 Other long term (current) drug therapy; Z82.49 Family history of ischemic heart disease and other diseases of the circulatory system; Z80.52 Family history of malignant neoplasm of bladder
CPT/HCPCS: 36415; 71010; 80048; 80053; 81003; 82550; 83605; 84484; 85025; 85610; 85652; 85730; 86140; 87040; 87070; 87076; 87077; 87205; 87640; 87641; 90715; 93005; A9270-GY; J0744; J2270; J2543; J3370